=== PATIENT | male | born 1935 | race Caucasian/White ===

== ENCOUNTER 2019-10-27 06:00 | Outpatient (RCR) | payer MEDICARE, SELFPAY | END 2019-11-24 23:59 | disposition home or self-care (01) | LOC: GPT 06:00 | PROVIDERS: Referring Provider Family Medicine; Visit Provider Family Medicine | DX: M25.561 Pain in right knee (principal) | CPT/HCPCS: 97110; 97161; 97530; G0283 ==

== ENCOUNTER 2019-11-25 06:00 | Outpatient (RCR) | payer MEDICARE, SELFPAY | END 2019-12-24 23:59 | disposition home or self-care (01) | LOC: GPT 06:00 | PROVIDERS: Referring Provider Family Medicine; Visit Provider Family Medicine | DX: M25.561 Pain in right knee (principal) | CPT/HCPCS: 97110; 97164; 97530; G0283 ==

== ENCOUNTER 2019-12-25 06:00 | Outpatient (RCR) | payer MEDICARE, SELFPAY | END 2020-01-24 23:59 | disposition home or self-care (01) | LOC: GPT 06:00 | PROVIDERS: Referring Provider Family Medicine; Visit Provider Family Medicine | DX: M25.561 Pain in right knee (principal) | CPT/HCPCS: 97110; 97112; 97116; 97530 ==

== ENCOUNTER 2020-01-25 06:00 | Outpatient (RCR) | payer MEDICARE, SELFPAY | END 2020-02-23 23:59 | disposition home or self-care (01) | LOC: GPT 06:00 | PROVIDERS: Referring Provider Family Medicine; Visit Provider Family Medicine | DX: M25.561 Pain in right knee (principal) | CPT/HCPCS: 97110; 97530; G0283 ==